=== PATIENT | female | born 1985 | race Caucasian/White ===

== ENCOUNTER → 2025-07-19 15:06 | Outpatient (CLI) | payer OTHER, SELFPAY ==
--- NOTE | 2025-07-19 15:08 | DI.MRI.S_ITS ---
PROCEDURE: MR WRIST LT WO CON INDICATIONS: R.o scaphoid TECHNIQUE: Noncontrast coronal proton density fast spin echo and T2 fast spin echo with fat saturation; coronal 3-D gradient echo, axial T1 spin echo and T2 fast spin echo with fat saturation, sagittal T1 spin echo through the wrist. COMPARISON: None. FINDINGS: Image quality: Excellent. Bones and cartilage: The carpal bones are normally aligned. Acute nondisplaced trapezium ridge fracture with marrow edema. Scaphoid is unremarkable. No evidence for avascular necrosis. Overlying cartilage surfaces appear normal. Carpal ligaments: The scapholunate and lunotriquetral ligaments appear intact. In the absence of intra-articular contrast, the extrinsic carpal ligaments are not well identified. On sagittal images, the pisohamate ligament appears intact. Triangular fibrocartilage complex: The triangular fibrocartilage appears intact. The adjacent meniscal homolog appears normal in the absence of intra-articular contrast. The extensor carpi ulnaris tendon is normal in location and morphology. Tendons and soft tissues: The carpal tunnel structures appear normal, including the median nerve. The ulnar nerve appears normal within Guyon's canal. All six extensor tendon compartments demonstrate normal morphology, without pathologic tendon sheath fluid. Ulnar-sided volar wrist ganglion cyst measuring 6 mm in greatest dimension extending from the approximate location of the volar radial ulnar ligaments, deep to the flexor tendons. IMPRESSION: Trapezium fracture. Dictated by: Matthew Wilkerson M.D. on 07/21/2025 at 10:29 Approved by: Matthew Wilkerson M.D. on 07/21/2025 at 10:34
== END ==
LOC: MRI 15:07
DX: S62.185A Nondisplaced fracture of trapezoid [smaller multangular], left wrist, initial encounter for closed fracture (principal); M25.532 Pain in left wrist
CPT/HCPCS: 73221